=== PATIENT | female | born 1970 | race Caucasian/White ===

== ENCOUNTER → 2018-03-22 | Outpatient (CLI) | payer OTHER ==
[~2018-03-22] MED LIST: LEXAPRO10 MG PO; NORCO 5/3251 TABLET PO; TYLENOL ARTHRI650 MG PO; XANAX0.5 MG PO
== END | disposition home or self-care (01) ==
LOC: CDC 10:49
DX: Z01.810 Encounter for preprocedural cardiovascular examination (principal); C50.512 Malignant neoplasm of lower-outer quadrant of left female breast
CPT/HCPCS: 93000

== ENCOUNTER 2018-03-29 06:54 | Day surgery (SDC) | payer OTHER ==
[~2018-03-29] VITALS: Ht 167.6 cm; Wt 96.2 kg
[2018-03-29 07:13] VITALS: BP 108/59
[2018-03-29 07:36] VITALS: BP 108/59
[2018-03-29] MEDS ORDERED: HYDROCODON-ACE1 EAC7 PO (13:20)
[2018-03-29 15:50] VITALS: BP 120/67
[2018-03-29 16:50] VITALS: BP 116/57
== END 2018-03-29 16:55 | disposition home or self-care (01) ==
LOC: NUC 06:54 → SDC 06:54
DX: C50.512 Malignant neoplasm of lower-outer quadrant of left female breast (principal); Z17.0 Estrogen receptor positive status [ER+]; Z87.891 Personal history of nicotine dependence; Z80.3 Family history of malignant neoplasm of breast; Z80.0 Family history of malignant neoplasm of digestive organs
CPT/HCPCS: 78195; 78999; A9541; J0690; J1100; J1170; J1885; J2250; J2405; J3010; J7120; J7643; S0020